=== PATIENT | male | born 1995 ===

== ENCOUNTER 2021-08-02 19:26 | Emergency (ER) | payer SELFPAY | END 2021-08-04 20:01 | disposition left against medical advice (07) | LOC: ED 19:26 | DX: H92.09 Otalgia, unspecified ear (principal); Z53.21 Procedure and treatment not carried out due to patient leaving prior to being seen by health care provider ==

== ENCOUNTER 2021-08-03 15:42 | Emergency (ER) | payer SELFPAY ==
[2021-08-03 16:31] VITALS: BP 158/93
--- NOTE | 2021-08-03 16:36 | Emergency Department Report ---
ED ENT HPI - General Chief complaint: Earache Stated complaint: LT EAR PAIN Time Seen by Provider: 08/03/21 16:33 Source: patient Mode of arrival: Ambulatory Limitations: No Limitations - History of Present Illness Initial comments: Patient presents with left ear pain and decreased hearing. This began several days ago. There is no trauma. He has had no water activities. He has no fevers or chills. There is no dizziness or lightheadedness. He has had no sore throat or cough. Pain is constant and aching. It does not radiate or migrate. He came in for evaluation and treatment because of this. - Related Data Previous Rx's Medication Instructions Recorded Last Taken Type Hydrogen Peroxide 1 ml MC 4XD #1 bottle 08/03/21 Unknown Rx Allergies Allergy/AdvReac Type Severity Reaction Status Date / Time No Known Allergies Allergy Verified 08/03/21 16:31 ED Dental HPI - General Chief complaint: Earache Stated complaint: LT EAR PAIN Time Seen by Provider: 08/03/21 16:33 Source: patient Mode of arrival: Ambulatory Limitations: No Limitations - Related Data Previous Rx's Medication Instructions Recorded Last Taken Type Hydrogen Peroxide 1 ml MC 4XD #1 bottle 08/03/21 Unknown Rx Allergies Allergy/AdvReac Type Severity Reaction Status Date / Time No Known Allergies Allergy Verified 08/03/21 16:31 ED Review of Systems ROS: Stated complaint: LT EAR PAIN Other details as noted in HPI Comment: All other systems reviewed and negative Constitutional: denies: fever Eyes: denies: eye pain ENT: as per HPI. denies: throat pain Respiratory: denies: cough Cardiovascular: denies: chest pain Endocrine: denies: unexplained weight loss Gastrointestinal: denies: abdominal pain Genitourinary: denies: dysuria Musculoskeletal: denies: back pain Skin: denies: rash Neurological: denies: headache Hematological/Lymphatic: denies: easy bruising ED Past Medical Hx - Past Medical History Previous Medical History?: No - Family History Family history: no significant - Medications Home Medications: Home Medications Medication Instructions Recorded Confirmed Last Taken Type Hydrogen Peroxide 1 ml MC 4XD #1 bottle 08/03/21 Unknown Rx ED Physical Exam - General Limitations: No Limitations, Other (Pulse ox noted and normal) General appearance: alert, in no apparent distress - Head Head exam: Present: atraumatic, normocephalic - Eye Eye exam: Present: normal appearance, EOMI - ENT ENT exam: Present: normal orophraynx, other (Left TM could not be visualized due to cerumen impaction. Canal was slightly erythematous and inflamed. Right TM was normal.) - Neck Neck exam: Present: normal inspection. Absent: meningismus - Respiratory Respiratory exam: Present: normal lung sounds bilaterally. Absent: wheezes - Cardiovascular Cardiovascular Exam: Present: regular rate, normal rhythm - Extremities Exam Extremities exam: Present: normal capillary refill - Back Exam Back exam: Present: full ROM - Neurological Exam Neurological exam: Present: alert, oriented X3, CN II-XII intact, normal gait. Absent: motor sensory deficit - Psychiatric Psychiatric exam: Present: normal affect, normal mood - Skin Skin exam: Present: warm, dry ED Course Vital Signs 08/03/21 16:30 Temperature 98 F Pulse Rate 72 Respiratory 18 Rate Blood Pressure 158/93 [Left] O2 Sat by Pulse 100 Oximetry - Reevaluation(s) Reevaluation #1: 08/03/21 20:48 Patient has evidence of cerumen impaction which likely is causing the otalgia. He was treated symptomatically. He is not dizzy or lightheaded. There has been no history of direct trauma. I am not concerned for TM perforation. He can use [id number] medication to dissolve the cerumen and help relieve the impaction. ED Medical Decision Making - Medical Decision Making Patient presented with left ear pain. He did not have a fever or other symptoms suggestive of infectious pathology. He did have cerumen impaction which can be treated symptomatically. He did not have trauma that would have suggested a perforation. He did not have dizziness or other symptoms suggestive of mastoiditis. Critical care attestation.: If time is entered above; I have spent that time in minutes in the direct care of this critically ill patient, excluding procedure time. ED Disposition Clinical Impression: Impacted cerumen, left ear Otalgia Qualifiers: Laterality: left Qualified Code(s): H92.02 - Otalgia, left ear Disposition: HOME / SELF CARE / HOMELESS Is pt being admited?: No Condition: Stable Instructions: Ear Drops, Adult, Earwax Buildup, Adult, Ear Irrigation Additional Instructions: DRINK WATER. RETURN FOR PROBLEMS. Prescriptions: Hydrogen Peroxide 1 ml MC 4XD #1 bottle Referrals: TERESA ROCKWELL MD [Staff Physician] - 3-5 Days Print Language: BHUTANESE
== END 2021-08-03 16:55 | disposition home or self-care (01) ==
LOC: ED 15:42
DX: H61.22 Impacted cerumen, left ear (principal)
CPT/HCPCS: 99282